=== PATIENT | male | born 1990 | race Caucasian/White ===

== ENCOUNTER 2017-06-08 09:59 | Emergency (ER) | payer SELFPAY ==
[~2017-06-08] VITALS: Ht 172.7 cm; Wt 63.6 kg
[2017-06-08] MEDS ORDERED: IBUPROFEN 800 MG TABLET PO ONE (11:00)
[2017-06-08] MEDS ORDERED: CEPHALEXIN MONOHYDRATE 500 MG CAPSULE PO ONE (11:00)
[2017-06-08] MEDS ORDERED: SULFAMETHOX/TRIMETH DS 800-160 MG/TABLET PO ONE (11:00)
[2017-06-08 12:01] VITALS: BP 111/88
== END 2017-06-08 12:50 | disposition home or self-care (01) ==
LOC: EMS 10:00
DX: L03.012 Cellulitis of left finger (principal); F12.90 Cannabis use, unspecified, uncomplicated; F17.210 Nicotine dependence, cigarettes, uncomplicated
CPT/HCPCS: 99284; 99406